=== PATIENT | female | born 1935 | race Caucasian/White ===

== ENCOUNTER 2018-11-06 21:18 | Inpatient (IN) | payer MEDICARE, OTHER ==
[~2018-11-06] VITALS: Ht 157.5 cm; Wt 53.0 kg
[2018-11-06 22:30] VITALS: BP 105/64
[2018-11-06 23:26] LABS: BASO % 0.1 % (0.0-1.0); EOS % 0.2 % (0.0-3.0); HEMATOCRIT 35.8 % (36.0-47.0); HEMOGLOBIN 11.7 g/dl (12.0-15.5); LYMPH # 0.6 10^3/uL (1.5-4.5); LYMPH % 7.1 % (24.0-44.0); MEAN CORPUSCULAR HEMOGLOBIN 29.5 pg (27.0-33.0); MEAN CORPUSCULAR HGB CONC 32.7 g/dl (32.0-36.5); MEAN CORPUSCULAR VOLUME 90.4 fl (80.0-96.0); MONO # 0.6 10^3/uL (0.0-0.8); MONO % 7.8 % (0.0-5.0); NEUTROPHILS # 6.8 10^3/uL (1.8-7.7); NEUTROPHILS % 84.6 % (36.0-66.0); PLATELET COUNT, AUTOMATED 143 10^3/uL (150-450); RED BLOOD COUNT 3.96 10^6/uL (4.00-5.40); WHITE BLOOD COUNT 8.1 10^3/uL (4.0-10.0)
[2018-11-06] MEDS ORDERED: MOM 30ML SUSPENSION UDC PO PRN (23:30)
[2018-11-06] MEDS ORDERED: ATOR1TAB21 PO (23:37)
[2018-11-06] MEDS ORDERED: ASPI81TA85 PO (23:37)
[2018-11-06] MEDS ORDERED: SYNT50TA PO (23:37)
[2018-11-06] MEDS ORDERED: LOSA50TA88 PO (23:38)
--- NOTE | 2018-11-06 23:49 | HPEPDOC ---
General Date of Admission Nov 06, 2018 at 22:20 Date of Service: Nov 06, 2018 Attending Physician: RAFAL STUBBS DO Chief Complaint The patient is a 83-year-old female admitted with a reason for visit of Renal Caluculi. Source: Patient, RN/MD History of Present Illness Patient is an 83-year-old female, presenting to [facility], on account of abdominal pain. Patient has a past medical history significant for hypothyroidism, hypertension, hyperlipidemia, symptomatic bradycardia status post pacemaker placement. She described the abdominal pain as a soreness. Onset 3-4 days ago, for which she was using heating pads. Initially pain was intermittent, but got progressively worse and consistent. She described the pain as dull and annoying reading at an 8 out of 10. Was unable to eat, was constipated, and was unable to move her bowels for about 2 days. At [facility], laboratory data was significant for BUN/creatinine of 19 and creatinine of 1.3 with a GFR of 39. CT abdomen and pelvis was completed which showed a 1.5 cm lesion in right hepatic lobe. There was also a 0.9 cm stone in the left UPJ with moderate left-sided hydroureteronephrosis and also moderate right-sided hydroureteronephrosis secondary to 1 cm stone at junction of the medial and distal thirds of the right ureter. The call was placed to urology, who recommended transferring patient to this facility for further evaluation and intervention. On assessment of patient she d enied any pain. She states she was much better, but complained of persisting constipation. Patient denied any chills, weakness, nausea, vomiting, fever Home Medications Scheduled Aspirin (Aspir 81) 81 Mg Tablet.dr, 81 MG PO DAILY, (Reported) Atorvastatin Calcium (Atorvastatin Calcium) 20 Mg Tablet, 20 MG PO QPM, (Reported) TAKES AROUND DINNERTIME Levothyroxine Sodium (Synthroid) 50 Mcg Tablet, 50 MCG PO DAILY, (Reported) Losartan Potassium (Losartan Potassium) 50 Mg Tablet, 50 MG PO DAILY, (Reported) Allergies Coded Allergies: No Known Allergies (Unverified , 11/06/18) Past Medical History Medical History Hypertension Hyperlipidemia Hypothyroidism Diverticulosis. Surgical History Uterine ablation. Pacemaker placement. Family History Hypothyroidism in first degree family members Social History * Smoker: Denies Alcohol: occationally Drugs: denies A-FIB/CHADSVASC A-FIB History Current/History of A-Fib/PAF?: No Current PO Anticoag Therapy: No Age/Risk Factor Scoring CHADSVASC: CHADSVASC Response (Comments) Value Age Risk Factor Age >/= 75 years old 2 Total 2 Review of Systems Other systems A 10 point pertinent review of systems was completed, negative except as stated in the history of presenting illness. Physical Examination Other physical findings GENERAL: NAD SKIN : Warm, brown martinez to bilateral suprapubic area. Patient states from heating pad HEENT: Atraumatic, normocephalic, PERRL, moist mucous membrane CARDIOVASCULAR: Regular rate and rhythm, S1S2, no JVD, no edema, distal pulses + and palpable RESP: CTAB, no accessory muscle use noted ABDOMEN: BS+ non distended, non tender MS: no joint deformities NEURO: Alert and oriented x 3, CN2-12 grossly intact PSYCH: no anxiety or agitation, appropriate mood and affect. Vital Signs see EMR Laboratory Data Labs 24H Laboratory Tests 2 11/06/18 23:12: Immature Granulocyte % (Auto) 0.2, White Blood Count 8.1, Red Blood Count 3.96L, Hemoglobin 11.7L, Hematocrit 35.8L, Mean Corpuscular Volume 90.4, Mean Corpuscular Hemoglobin 29.5, Mean Corpuscular Hemoglobin Concent 32.7, Red Cell Distribution Width 13.5, Platelet Count 143L, Neutrophils (%) (Auto) 84.6H, Lymphocytes (%) (Auto) 7.1L, Monocytes (%) (Auto) 7.8H, Eosinophils (%) (Auto) 0.2, Basophils (%) (Auto) 0.1, Neutrophils # (Auto) 6.8, Lymphocytes # (Auto) 0.6L, Monocytes # (Auto) 0.6, Eosinophils # (Auto) 0.0, Basophils # (Auto) 0.0, Nucleated Red Blood Cells % (auto) 0.0 CBC/BMP Laboratory Tests 11/06/18 23:12 Red Blood Count 3.96 L, Mean Corpuscular Volume 90.4, Mean Corpuscular Hemoglobin 29.5, Mean Corpuscular Hemoglobin Concent 32.7, Red Cell Distribution Width 13.5, Neutrophils (%) (Auto) 84.6 H, Lymphocytes (%) (Auto) 7.1 L, Monocytes (%) (Auto) 7.8 H, Eosinophils (%) (Auto) 0.2, Basophils (%) (Auto) 0.1, Neutrophils # (Auto) 6.8, Lymphocytes # (Auto) 0.6 L, Monocytes # (Auto) 0.6, Eosinophils # (Auto) 0.0, Basophils # (Auto) 0.0 Assessment/Plan Bilateral hydroureteronephrosis -Secondary to obstructive uropathy with renal stones -Call has been placed to urology, who plan to see patient and a consultation has also been placed -IV fluids with normal saline at 80 mL per hour now -Follow recommendations by urology Hypertension -Stable, controlled, continue losartan -Blood pressure monitoring per unit protocol Renal insufficiency -Although GFR is 39, creatinine is only mildly increased at 1.5 -Uncertain if this is an acute or chronic condition -Continuous IV fluids -Monitoring of renal function with fluid hydration for response to therapy -Avoid nephrotoxic medications -Treatment of underlying obstructive uropathy Hypothyroidism -Continue Synthroid Hyperlipidemia -Atorvastatin 20 mg 2 at bedtime Constipation -Bowel regimen with Colace 100 mg twice a day -MiraLAX daily DVT prophylaxis -Antiembolic stockings with sequential compression devices in light of possible urologic surgical intervention Plan / VTE VTE Prophylaxis Ordered?: Yes MAY MENDEZ [facility] Nov 06, 2018 23:49
[2018-11-06 23:56] LABS: ALBUMIN 3.3 GM/DL (3.2-5.2); BILIRUBIN,TOTAL 0.5 MG/DL (0.2-1.0); CALCIUM LEVEL 8.6 MG/DL (8.8-10.2); CREATININE FOR GFR 1.02 MG/DL (0.55-1.30); GLOMERULAR FILTRATION RATE 55.2 (>32); POTASSIUM SERUM 3.9 MEQ/L (3.5-5.1); TOTAL PROTEIN 6.4 GM/DL (6.4-8.2)
[2018-11-07] VITALS (7 sets, daily range): BP systolic 82–110; BP diastolic 51–64
[2018-11-07] MEDS: NS 1,000 ML IV SCH ×2 (00:01→12:00)
[2018-11-07] MEDS ORDERED: SENNA 8.6 MG TAB (SENOKOT) PO SCH (00:15)
[2018-11-07] MEDS ORDERED: LEVOTHYROXINE 50MCG TABLET (0.05MG) PO SCH (06:00)
[2018-11-07] MEDS: ACETAMINOPHEN TAB 650MG DOSE (2X325MG) PO PRN ×2 (06:13→14:59)
[2018-11-07 06:30] LABS: HEMOGLOBIN 11.6 g/dl (12.0-15.5); MEAN CORPUSCULAR HEMOGLOBIN 29.4 pg (27.0-33.0); MEAN CORPUSCULAR HGB CONC 32.2 g/dl (32.0-36.5); MEAN CORPUSCULAR VOLUME 91.1 fl (80.0-96.0); PLATELET COUNT, AUTOMATED 147 10^3/uL (150-450); RED BLOOD COUNT 3.95 10^6/uL (4.00-5.40); WHITE BLOOD COUNT 7.6 10^3/uL (4.0-10.0)
[2018-11-07 06:49] LABS: ALBUMIN 3.1 GM/DL (3.2-5.2); ALT/SGPT 20 U/L (12-78); BILIRUBIN,TOTAL 0.5 MG/DL (0.2-1.0); BLOOD UREA NITROGEN 13 MG/DL (7-18); CALCIUM LEVEL 8.4 MG/DL (8.8-10.2); CARBON DIOXIDE LEVEL 25 MEQ/L (21-32); CHLORIDE LEVEL 110 MEQ/L (98-107); GLOMERULAR FILTRATION RATE > 60.0 (>32); GLUCOSE, FASTING 96 MG/DL (70-100); SODIUM LEVEL 141 MEQ/L (136-145); TOTAL PROTEIN 6.3 GM/DL (6.4-8.2)
[2018-11-07] MEDS ORDERED: KETOROLAC TROMETHAMINE 10 MG TAB PO PRN (08:00)
[2018-11-07] MEDS ORDERED: ONDANSETRON 4MG/2ML VIAL (J2405) IV PRN ×2 (08:00→13:30)
[2018-11-07] MEDS: DOCUSATE SODIUM 100 MG CAP PO SCH ×2 (09:00)
[2018-11-07] MEDS ORDERED: ASPIRIN 81 MG CHEW TABLET PO SCH (09:00)
[2018-11-07] MEDS ORDERED: CYANOCOBALAMIN 500 MCG TAB PO SCH (09:00)
[2018-11-07] MEDS ORDERED: TAMSULOSIN 0.4 MG CAP PO SCH (09:00)
[2018-11-07] MEDS ORDERED: MULTIVITAMINS/MINERALS THERAP 1 TAB PO SCH (09:00)
[2018-11-07] MEDS ORDERED: MIRALAX *UNIT DOSE* 17GM PACKET PO SCH (09:00)
[2018-11-07] MEDS ORDERED: LOSARTAN 50 MG TAB PO SCH (09:00)
--- NOTE | 2018-11-07 10:19 | IPNPDOC ---
Text Note Date of Service The patient was seen on 11/07/18. NOTE Subjective: Patient is an 83-year-old female with a PMHx of HTN, DLP, Hypothyroidism, Diverticulosis who presented to [facility] as a transfer from [facility] for bilateral kidney stones associated with hydroureteronephrosis. Patient was admitted to hospital service for further evaluation and treatment, and urology was called on consultation Patient was seen and examined at the bedside. Patient reports that this morning she was expressing some left lower abdominal pain. She denies any Mansoor with urination. She did report some nausea without vomiting. Denies chest pain, shortness of breath, palpitations. Objective: Vitals (See below) General: Lying in bed, no acute distress, comfortable, AAOx3 HEENT: NC, AT CVS: RRR, +S1S2 Lungs: Fair air entry b/l, -w/r/r Abdomen: Soft, ND, NT Extremities: - Edema, - Calf tenderness Assessment and plan: Lower abdominal pain / flank pain - likely 22/ bilateral hydroureteronephrosis, in the setting of nephrolithiasis - Clinically patient reports that she is rinsing some abdominal discomfort - Physical without any significant findings - No leukocytosis or renal dysfunction - c/w IV fluids and Tamsulosin - c/w pain control with Tylenol and Toradol - Case has been discussed with urology; will keep patient nothing by mouth for potential intervention today Hypertension - BP well controlled - c/w Losartan Hypothyroidism - c/w Levothyroxine Hyperlipidemia - c/w Atorvastatin Constipation - c/w bowel regimen as ordered DVT prophylaxis - c/w EMILIANA / Sequentials VS,Fishbone, I+O VS, Fishbone, I+O Laboratory Tests 11/06/18 23:12 Red Blood Count 3.96 L, Mean Corpuscular Volume 90.4, Mean Corpuscular Hemo globin 29.5, Mean Corpuscular Hemoglobin Concent 32.7, Red Cell Distribution Width 13.5, Neutrophils (%) (Auto) 84.6 H, Lymphocytes (%) (Auto) 7.1 L, Monocytes (%) (Auto) 7.8 H, Eosinophils (%) (Auto) 0.2, Basophils (%) (Auto) 0.1, Neutrophils # (Auto) 6.8, Lymphocytes # (Auto) 0.6 L, Monocytes # (Auto) 0.6, Eosinophils # (Auto) 0.0, Basophils # (Auto) 0.0, Calcium Level 8.6 L, Aspartate Amino Transf (AST/SGOT) 20, Alanine Aminotransferase (ALT/SGPT) 22, Alkaline Phosphatase 82, Total Bilirubin 0.5, Total Protein 6.4, Albumin 3.3 11/07/18 06:07 Red Blood Count 3.95 L, Mean Corpuscular Volume 91.1, Mean Corpuscular Hemoglobin 29.4, Mean Corpuscular Hemoglobin Concent 32.2, Red Cell Distribution Width 13.3, Calcium Level 8.4 L, Aspartate Amino Transf (AST/SGOT) 15, Alanine Aminotransferase (ALT/SGPT) 20, Alkaline Phosphatase 83, Total Bilirubin 0.5, Total Protein 6.3 L, Albumin 3.1 L Vital Signs Date Time Temp Pulse Resp B/P (MAP) Pulse Ox O2 Delivery O2 Flow Rate FiO2 11/07/18 06:00 100.4 77 18 108/64 (90) 96 I&O- Last 24 Hours up to 6 AM 11/07/18 06:00 Intake Total 220 ml Output Total 750 ml Balance -530 ml KELVIN WASHINGTON MD Nov 07, 2018 10:19
--- NOTE | 2018-11-07 10:52 | SMCUROLCON ---
Urology Consultation General Date of Consultation 11/07/18 Reason For Consultation This patient is seen for Biateral Renal Caluculi. History of Present Illness Patient is an 83-year-old female, presenting to [facility], on account of abdominal pain. Patient has a past medical history significant for hypoth yroidism, hypertension, hyperlipidemia, symptomatic bradycardia status post pacemaker placement. She described the abdominal pain as a soreness. Onset 3-4 days ago, for which she was using heating pads. Initially pain was intermittent, but got progressively worse and consistent. She described the pain as dull and annoying reading at an 8 out of 10. Was unable to eat, was constipated, and was unable to move her bowels for about 2 days. At [facility], laboratory data was significant for BUN/creatinine of 19 and creatinine of 1.3 with a GFR of 39. CT abdomen and pelvis was completed which sh owed a 1.5 cm lesion in right hepatic lobe. There was also a 0.9 cm stone in the left UPJ with moderate left-sided hydroureteronephrosis and also moderate right- sided hydroureteronephrosis secondary to 1 cm stone at junction of the medial and distal thirds of the right ureter. 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 Past Medical History Medical History Medical History Hypertension Hyperlipidemia Hypothyroidism Diverticulosis. Surgical Hstory Surgical History Uterine ablation. Pacemaker placement. Social History * Smoker: former Smoker Drugs: denies Medications Current Medications Current Medications Acetaminophen (Tylenol Tab) 650 mg Q4H PRN PO PAIN OR FEVER Last administered on 11/07/18at 06:13; Start 11/06/18 at 23:30 Aspirin (Aspirin Chewable) 81 mg DAILY PO ; Start 11/07/18 at 09:00 Atorvastatin Calcium (Lipitor) 20 mg DAILY@1800 PO ; Start 11/07/18 at 18:00 Cyanocobalamin (Vitamin B12) 500 mcg QAM PO ; Start 11/07/18 at 09:00 Docusate Sodium (Colace) 100 mg BID PO Last administered on 11/07/18at 00:00; Start 11/06/18 at 21:00 Home Med (Med Rec Complete!) ASDIRECTED XX ; Start 11/06/18 at 23:45; Stop 11/06/18 at 23:45; Status DC Ketorolac Tromethamine (ToRADol) 10 mg Q6HP PRN PO PAIN; Start 11/07/18 at 08:00; Stop 11/12/18 at 07:59 Levothyroxine Sodium (Synthroid) 50 mcg DAILY@06 PO Last administered on 11/07/18at 06:13; Start 11/07/18 at 06:00 Losartan Potassium (Cozaar) 50 mg DAILY PO ; Start 11/07/18 at 09:00 Magnesium Hydroxide (Milk Of Magnesia) 30 ml DAILY PRN PO CONSTIPATION; Start 11/06/18 at 23:30; Stop 11/07/18 at 00:11; Status DC Multivitamins (Theragram-M) 1 tab DAILY PO ; Start 11/07/18 at 09:00 Ondansetron HCl (ZOFRAN INJection) 4 mg Q6HP PRN IV NAUSEA OR VOMITING; Start 11/07/18 at 08:00 Polyethylene Glycol (Miralax) 1 pkt DAILY PO ; Start 11/07/18 at 09:00 Senna (Senokot) 1 tab DAILY PO Last administered on 11/07/18at 00:34; Start 11/07/18 at 00:15 Sodium Chloride 1,000 ml @ 80 mls/hr [id number] IV Last administered on 11/07/18at 00:01; Start 11/06/18 at 23:30 Tamsulosin HCl (Flomax) 0.4 mg DAILY PO ; Start 11/07/18 at 09:00 Allergies Allergies: Coded Allergies: No Known Allergies (Unverified , 11/06/18) Review of Systems General: Denies: ROS Unobtainable, Chills, Night Sweats, Fatigue, Malaise, Normal Appetite, Other Symptoms Constitutional: Denies: Fever, Chills, Sweats, Weakness, Malaise, Other Eyes: Denies: Pain, Vision change, Conjunctivae inflammation, Eyelid inflammation, Redness, Other ENT: Denies: Head Aches, Ear Pain, Dysphagia, Sinus Congestion, Post Nasal Drip, Sore Throat, Epistaxis, Other Symptoms Skin: Denies: Rash, Lesions, Jaundice, Bruising, Itching, Dry, Breakdown, Nail Changes, Other Pulmonary: Denies: Dyspnea, Cough, Pleuritic Chest Pain, Other Symptoms Cardiovascular: Denies Chest Pain, Denies Palpitations, Denies Orthopnea, Denies Paroxysmal Noc. Dyspnea, Denies Edema, Denies Lt Headedness, Denies Other Symptoms Gastrointestinal: Reports: Abdominal Pain; Denies: Nausea, Vomiting, Diarrhea, Constipation, Melena, Hematochezia, Other Symptoms Genitourinary: Reports: Hematuria; Denies: Dysuria, Frequency, Incontinence, Retention, Other Symptoms Hematologic: Denies: Bruising, Bleeding Excessively, Petecchia, Purpura, Enlarged Lymph Nodes, Other Hematologic Endocrine: Denies: Polydipsia, Polyphagia, Polyuria, Heat Intolerance, Cold Intolerance, Other Endocrine Sx Musculoskeletal: Denies: Neck Pain, Back Pain, Shoulder Pain, Arm Pain, Hand Pain, Leg Pain, Foot Pain, Joint Pain, Muscle Pain, Spasms, Other Symptoms Neurological: Denies: Weakness, Numbness, Incoordination, Change in Speech, Confusion, Seizures, Other Symptoms Psych: Reports: Mood Normal; Denies: Anxiety, Depression, Memory Issues, Thoughts of Self Harm, Anger, Thoughts of harming Other, Other Psych Physical Examination General Exam: Alert EYE EXAM: PERRLA ENT EXAM: Tongue Midline Neck Exam: Supple Abdomen Exam: Normal Bowel Sounds, Soft Extremity Exam: Normal Pulses; No: Clubbing, Cyanosis, Edema, Tenderness, Swelling, Other Skin Exam: Nl turgor and temperature Psych Exam: Mental status NL, Mood NL, Oriented x 3 Vital Signs/I&O Vital Signs Date Time Temp Pulse Resp B/P (MAP) Pulse Ox O2 Delivery O2 Flow Rate FiO2 11/07/18 06:00 100.4 77 18 108/64 (79) 96 I&O- Last 24 Hours up to 6 AM 11/07/18 05:59 Intake Total 100 ml Output Total 350 ml Balance -250 ml Laboratory Data 24H Labs Laboratory Tests 2 11/06/18 23:12: Immature Granulocyte % (Auto) 0.2, White Blood Count 8.1, Red Blood Count 3.96L, Hemoglobin 11.7L, Hematocrit 35.8L, Mean Corpuscular Volume 90.4, Mean Corpuscular Hemoglobin 29.5, Mean Corpuscular Hemoglobin Concent 32.7, Red Cell Distribution Width 13.5, Platelet Count 143L, Neutrophils (%) (Auto) 84.6H, Lymphocytes (%) (Auto) 7.1L, Monocytes (%) (Auto) 7.8H, Eosinophils (%) (Auto) 0.2, Basophils (%) (Auto) 0.1, Neutrophils # (Auto) 6.8, Lymphocytes # (Auto) 0.6L, Monocytes # (Auto) 0.6, Eosinophils # (Auto) 0.0, Basophils # (Auto) 0.0, Nucleated Red Blood Cells % (auto) 0.0, Anion Gap 6L, Glomerular Filtration Rate 55.2, Blood Urea Nitrogen 16, Creatinine 1.02, Sodium Level 139, Potassium Level 3.9, Chloride Level 108H, Carbon Dioxide Level 25, Calcium Level 8.6L, Aspartate Amino Transf (AST/SGOT) 20, Alanine Aminotransferase (ALT/SGPT) 22, Alkaline Phosphatase 82, Total Bilirubin 0.5, Total Protein 6.4, Albumin 3.3, Albumin/Globulin Ratio 1.06 11/07/18 06:07: Nucleated Red Blood Cells % (auto) 0.0, Anion Gap 6L, Glomerular Filtration Rate > 60.0, Blood Urea Nitrogen 13, Creatinine 0.90, Sodium Level 141, Potassium Level 4.0, Chloride Level 110H, Carbon Dioxide Level 25, Calcium Level 8.4L, Aspartate Amino Transf (AST/SGOT) 15, Alanine Aminotransferase (ALT/SGPT) 20, Alkaline Phosphatase 83, Total Bilirubin 0.5, Total Protein 6.3L, Albumin 3.1L, Albumin/Globulin Ratio 0.97L CBC/BMP Laboratory Tests 11/06/18 23:12 Red Blood Count 3.96 L, Mean Corpuscular Volume 90.4, Mean Corpuscular Hemoglobin 29.5, Mean Corpuscular Hemoglobin Concent 32.7, Red Cell Distribution Width 13.5, Neutrophils (%) (Auto) 84.6 H, Lymphocytes (%) (Auto) 7.1 L, Monocytes (%) (Auto) 7.8 H, Eosinophils (%) (Auto) 0.2, Basophils (%) (Auto) 0.1, Neutrophils # (Auto) 6.8, Lymphocytes # (Auto) 0.6 L, Monocytes # (Auto) 0.6, Eosinophils # (Auto) 0.0, Basophils # (Auto) 0.0, Calcium Level 8.6 L, Aspartate Amino Transf (AST/SGOT) 20, Alanine Aminotransferase (ALT/SGPT) 22, Alkaline Phosphatase 82, Total Bilirubin 0.5, Total Protein 6.4, Albumin 3.3 11/07/18 06:07 Red Blood Count 3.95 L, Mean Corpuscular Volume 91.1, Mean Corpuscular Hemoglobin 29.4, Mean Corpuscular Hemoglobin Concent 32.2, Red Cell Distribution Width 13.3, Calcium Level 8.4 L, Aspartate Amino Transf (AST/SGOT) 15, Alanine Aminotransferase (ALT/SGPT) 20, Alkaline Phosphatase 83, Total Bilirubin 0.5, Total Protein 6.3 L, Albumin 3.1 L Assessment Mrs. Spivey with bilateral partially obstructing ureteral stones that are too large to pass without assistance. She is currently afebrile and comfortable. Secondary to her age and that both systems are obstructed relief of the obstructions are required. Plan I discussed the risks and benefits of the treatment options. 1) Do nothing at this time and schedule future intervention. Risks of complete bilateral obstruction, or recurrent pain, or infection 2) Place bilateral ureteral stents today. Risks unable to place both stents 3) Bilateral Ureteroscopy with laser lithrotripsy today. She is on aspirin increase of bleeding. Plan is bilateral ureteral stent placement. Time Spent on Consult: Time Spent / Consult (Minutes): 40 GISELA MERCEDES MD Nov 07, 2018 10:31
[2018-11-07] MEDS ORDERED: PROPOFOL 200 MG/20 ML VIAL As Ordered ONE (11:11)
[2018-11-07] MEDS ORDERED: LIDOCAINE 2% INJ 100 MG/5 ML SDV (FOR ANES.) As Ordered ONE (11:12)
[2018-11-07] MEDS ORDERED: dexameTHASONE 4 MG/ML 1ML VIAL (J1100) As Ordered ONE (11:13)
[2018-11-07] MEDS ORDERED: ONDANSETRON 4MG/2ML VIAL (J2405) As Ordered ONE (11:13)
[2018-11-07] MEDS ORDERED: MIDAZOLAM INJ 2 MG/2 ML VIAL (J2250) As Ordered ONE (11:14)
[2018-11-07] MEDS ORDERED: fentaNYL 100 MCG/2 ML INJECTION (J3010) As Ordered ONE (11:14)
[2018-11-07] MEDS ORDERED: CONRAY-60 60% 50ML VIAL (Q9961) As Ordered ONE (11:52)
[2018-11-07] MEDS ORDERED: LIDOCAINE 2% 5ML JELLY UROJET As Ordered ONE (11:52)
[2018-11-07] MEDS ORDERED: CIPROFLOXACIN/D5W 400 MG/200 ML BAG (J0744) As Ordered ONE (12:11)
[2018-11-07] MEDS ORDERED: HYDROMORPHONE HCL 0.5 MG/ 0.5 ML SYRINGE (J1170 PER 1) IV PRN (13:30)
[2018-11-07] MEDS ORDERED: PERCOCET 5MG/325MG TAB PO PRN (13:30)
[2018-11-07] MEDS ORDERED: LR 1,000 ML IV SCH (13:30)
[2018-11-07] MEDS ORDERED: fentaNYL 100 MCG/2 ML INJECTION (J3010) IV PRN (13:30)
--- NOTE | 2018-11-07 13:35 | ROOPDOC ---
[facility] Report Of Operation Report of Operation DATE OF PROCEDURE: 11/07/18 PREPROCEDURE DIAGNOSES: Bilateral ureteral obstructing calculus. POSTPROCEDURE DIAGNOSES: Same. PROCEDURE: Cystoscopy, bilateral retrograde pyelograms, bilateral ureteral 7FR stent placement. 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 anesthesia with LMA. ESTIMATED BLOOD LOSS: Approximately minimal mL. COMPLICATIONS: None. REMARKS: PROCEDURE NOTE: Patient 83-year-old female who was admitted last night transfer from another hospital with bilateral ureteral calculus associated with abdominal pain and discomfort. Never had a history of kidney stones and she is relatively for her age, healthy. Risks, benefits and complications of the treatment options were discussed. Patient elected to receive a cystoscopy, bilateral retrograde pyelograms, bilateral ureteral stent placement. DESCRIPTION OF PROCEDURE: Consents were signed prior to his procedure. Patient was identified itself brought in the operating room cystoscopy suite. A quick timeout was performed. She was given general anesthesia with LMA. She was prepped and draped in a standard fashion, placed in lithotomy position. A second timeout was performed. A 22 Indonesian cystoscope was placed in the urethra. Bladder was inspected and no pathology was noted. All quadrants were without masses or areas of bleeding. The left ureteral orifice was identified and was cannulated with a Pollack catheter with the assistance of a 0.38 wire. The wire was removed and a retrograde pyelogram was performed. The 0.38 wire was then passed through the Pollack catheter up into the renal pelvis. A 7Fr. ureteral stent was placed over the wire into the renal pelvis. Fluoroscopic guidance was used. The urete ral stent was coiled in the renal pelvis. The wire was removed and distal part of stent was noted to be coiled in the bladder. The stent was draining copious amount of urine. We then turned to the right side and repeated to process. The right ureteral orifice was identified and was cannulated with a Pollack catheter with the assistance of a 0.38 wire. The wire was removed and a retrograde pyelogram was performed. The 0.38 wire was then passed through the Pollack catheter up into the renal pelvis. A 7Fr. ureteral stent was placed over the wire into the renal pelvis. Fluoroscopic guidance was used. The ureteral stent was coiled in the renal pelvis. The wire was removed and distal part of stent was noted to be coiled in the bladder. The stent was draining copious amount of urine. The bladder was reinspected again procedure. The bladder was drained and was noted to be draining clear urine. Cystoscope was removed. Patient was washed off and awakened from anesthesia. Taken to recovery room and then returned to the floor. She is expected to be discharged home later if there are no complications. GISELA SOSA MD Nov 07, 2018 13:35
--- NOTE | 2018-11-07 14:15 | REP ---
Clinical: Bilateral send placement. Technique: Intraoperative fluoroscopic imaging using portable C-arm technique. Findings: Multiple images demonstrate bilateral hydroureteronephrosis (right greater than left) with satisfactory bilateral ureteral stent placement. Total fluoroscopic time 1 minute 25 seconds. Impression: Status post bilateral ureteral stent placement. Electronically Signed by Wily Godinez MD 11/07/2018 02:07 P
[2018-11-07] MEDS ORDERED: ATORVASTATIN 20 MG TAB PO SCH (18:00)
[2018-11-07] MEDS ORDERED: KETO10TAB PO (18:13)
[2018-11-07] MEDS ORDERED: FLOM0.4C39 PO (18:13)
--- NOTE | 2018-11-07 18:18 | DS.PDOC ---
Discharge Summary General Date of Admission Nov 06, 2018 at 22:20 Date of Discharge 11/07/2018 Discharge Summary PROCEDURES PERFORMED DURING STAY: Cystoscopy, bilateral retrograde pyelograms, bilateral ureteral 7FR stent placement with Dr. Laurel Sosa on 11/07/2018 ADMITTING DIAGNOSES / DISCHARGE DIAGNOSES: Lower abdominal pain / flank pain - likely 2/2 bilateral hydroureteronephrosis, in the setting of nephrolithiasis Hypertension Hypothyroidism Hyperlipidemia Constipation DVT prophylaxis COMPLICATIONS/CHIEF COMPLAINT: Flank / Abdominal pain HISTORY OF PRESENT ILLNESS: Patient is an 83-year-old female with a PMHx of HTN, DLP, Hypothyroidism, Diverticulosis who presented to [facility] as a transfer from [facility] for bilateral kidney stones associated with hydroureteronephrosis. Patient was admitted to hospital service for further evaluation and treatment, and urology was called on consultation HOSPITAL COURSE: Lower abdominal pain / flank pain - likely 2/2 bilateral hydroureteronephrosis, in the setting of nephrolithiasis - Physical without any significant findings - No leukocytosis or renal dysfunction - c/w IV fluids and Tamsulosin; will cotinue tamsulosin as an outpatient - c/w pain control with Tylenol and Toradol - Has had Cystoscopy, bilateral retrograde pyelograms, bilateral ureteral 7FR stent placement with Dr. Luarel Sosa on 11/07/2018 - Cleared by urology for discharge home and follow up within 2 weeks - Will have outpatient follow up with PMD within 7 days - Advised increased hydration and compliance with medications Hypertension - BP well controlled - c/w Losartan Hypothyroidism - c/w Levothyroxine Hyperlipidemia - c/w Atorvastatin Constipation - c/w bowel regimen as ordered DVT prophylaxis - c/w EMILIANA / Sequentials DISCHARGE MEDICATIONS: Please see below. ALLERGIES: Please see below. PHYSICAL EXAMINATION ON DISCHARGE: Vitals (See below) General: Lying in bed, no acute distress, comfortable, AAOx3 HEENT: NC, AT CVS: RRR, +S1S2 Lungs: Fair air entry b/l, -w/r/r Abdomen: Soft, ND, NT Extremities: - Edema, - Calf tenderness LABORATORY DATA: Please see below. ACTIVITY: [As tolerated]. DISCHARGE PLAN: Follow up with Zayra Hernandez and Urology within 7 days Remain compliant with treatment plan and medications Return to the ER if you experience any problems DISPOSITION: Home DISCHARGE CONDITION: [Stable]. TIME SPENT ON DISCHARGE: 35 minutes Vital Signs/I&Os Vital Signs Date Time Temp Pulse Resp B/P (MAP) Pulse Ox O2 Delivery O2 Flow Rate FiO2 11/07/18 16:30 98.0 76 17 85/55 (65) 98 11/07/18 13:10 2 I&O- Last 24 Hours up to 6 AM 11/07/18 06:00 Intake Total 220 ml Output Total 750 ml Balance -530 ml Laboratory Data Labs 24H Laboratory Tests 2 11/06/18 23:12: Immature Granulocyte % (Auto) 0.2, White Blood Count 8.1, Red Blood Count 3.96L, Hemoglobin 11.7L, Hematocrit 35.8L, Mean Corpuscular Volume 90.4, Mean Corpuscular Hemoglobin 29.5, Mean Corpuscular Hemoglobin Concent 32.7, Red Cell Distribution Width 13.5, Platelet Count 143L, Neutrophils (%) (Auto) 84.6H, Lymphocytes (%) (Auto) 7.1L, Monocytes (%) (Auto) 7.8H, Eosinophils (%) (Auto) 0.2, Basophils (%) (Auto) 0.1, Neutrophils # (Auto) 6.8, Lymphocytes # (Auto) 0.6L, Monocytes # (Auto) 0.6, Eosinophils # (Auto) 0.0, Basophils # (Auto) 0.0, Nucleated Red Blood Cells % (auto) 0.0, Anion Gap 6L, Glomerular Filtration Rate 55.2, Blood Urea Nitrogen 16, Creatinine 1.02, Sodium Level 139, Potassium Level 3.9, Chloride Level 108H, Carbon Dioxide Level 25, Calcium Level 8.6L, Aspartate Amino Transf (AST/SGOT) 20, Alanine Aminotransferase (ALT/SGPT) 22, Alkaline Phosphatase 82, Total Bilirubin 0.5, Total Protein 6.4, Albumin 3.3, Albumin/Globulin Ratio 1.06 11/07/18 06:07: Nucleated Red Blood Cells % (auto) 0.0, Anion Gap 6L, Glomerular Filtration Rate > 60.0, Blood Urea Nitrogen 13, Creatinine 0.90, Sodium Level 141, Potassium Level 4.0, Chloride Level 110H, Carbon Dioxide Level 25, Calcium Level 8.4L, Aspartate Amino Transf (AST/SGOT) 15, Alanine Aminotransferase (ALT/SGPT) 20, Alkaline Phosphatase 83, Total Bilirubin 0.5, Total Protein 6.3L, Albumin 3.1L, Albumin/Globulin Ratio 0.97L 11/07/18 10:33: Urine Color YELLOW, Urine Appearance CLEAR, Urine pH 5.0, Urine Specific [place] 1.018, Urine Protein NEGATIVE, Urine Glucose (UA) NEGATIVE, Urine Ketones 1+H, Urine Blood 2+H, Urine Nitrite NEGATIVE, Urine Bilirubin NEGATIVE, Urine Urobilinogen 0.2, Urine Leukocyte Esterase NEGATIVE, Urine WBC (Auto) 9H, Urine RBC (Auto) 15H, Urine Hyaline Casts (Auto) 0, Urine Bacteria (Auto) NEGATIVE, Urine Squamous Epithelial Cells 1, Urine Sperm (Auto) CBC/BMP Laboratory Tests 11/06/18 23:12 Red Blood Count 3.96 L, Mean Corpuscular Volume 90.4, Mean Corpuscular Hemoglobin 29.5, Mean Corpuscular Hemoglobin Concent 32.7, Red Cell Distribution Width 13.5, Neutrophils (%) (Auto) 84.6 H, Lymphocytes (%) (Auto) 7.1 L, Monocytes (%) (Auto) 7.8 H, Eosinophils (%) (Auto) 0.2, Basophils (%) (Auto) 0.1, Neutrophils # (Auto) 6.8, Lymphocytes # (Auto) 0.6 L, Monocytes # (Auto) 0.6, Eosinophils # (Auto) 0.0, Basophils # (Auto) 0.0, Calcium Level 8.6 L, Aspartate Amino Transf (AST/SGOT) 20, Alanine Aminotransferase (ALT/SGPT) 22, Alkaline Phosphatase 82, Total Bilirubin 0.5, Total Protein 6.4, Albumin 3.3 11/07/18 06:07 Red Blood Count 3.95 L, Mean Corpuscular Volume 91.1, Mean Corpuscular Hemoglobin 29.4, Mean Corpuscular Hemoglobin Concent 32.2, Red Cell Distribution Width 13.3, Calcium Level 8.4 L, Aspartate Amino Transf (AST/SGOT) 15, Alanine Aminotransferase (ALT/SGPT) 20, Alkaline Phosphatase 83, Total Bilirubin 0.5, Total Protein 6.3 L, Albumin 3.1 L Discharge Medications Scheduled Aspirin (Aspir 81) 81 Mg Tablet.dr, 81 MG PO DAILY, (Reported) Atorvastatin Calcium (Atorvastatin Calcium) 20 Mg Tablet, 20 MG PO QPM, (Reported) TAKES AROUND DINNERTIME Levothyroxine Sodium (Synthroid) 50 Mcg Tablet, 50 MCG PO DAILY, (Reported) Losartan Potassium (Losartan Potassium) 50 Mg Tablet, 50 MG PO DAILY, (Reported) Tamsulosin HCl (Flomax) 0.4 Mg Capsule, 0.4 MG PO DAILY Scheduled PRN Ketorolac Tromethamine (Ketorolac Tromethamine) 10 Mg Tablet, 10 MG PO Q6HP PRN for PAIN Allergies Coded Allergies: No Known Allergies (Unverified , 11/06/18) KELVIN WASHINGTON MD Nov 07, 2018 18:18
== END 2018-11-07 18:50 | disposition home or self-care (01) | DRG 661 ==
LOC: M MS5PR 22:20
PROVIDERS: ADMIT Family Medicine; ATTEND Family Medicine
PROC: 0TJB8ZZ Inspection of Bladder, Via Natural or Artificial Opening Endoscopic (ICD-10-PCS; 2018-11-07)
PROC: 0T788DZ Dilation of Bilateral Ureters with Intraluminal Device, Via Natural or Artificial Opening Endoscopic (ICD-10-PCS; principal; 2018-11-07 10:34)
DX: N13.2 Hydronephrosis with renal and ureteral calculous obstruction (principal); I10 Essential (primary) hypertension; E78.5 Hyperlipidemia, unspecified; Z95.0 Presence of cardiac pacemaker; E03.9 Hypothyroidism, unspecified; Z79.82 Long term (current) use of aspirin; Z79.899 Other long term (current) drug therapy; K59.00 Constipation, unspecified; N28.9 Disorder of kidney and ureter, unspecified; K57.90 Diverticulosis of intestine, part unspecified, without perforation or abscess without bleeding; Z87.891 Personal history of nicotine dependence

== ENCOUNTER 2018-12-23 05:31 | Day surgery (SDC) | payer MEDICARE, OTHER ==
[~2018-12-23] VITALS: Ht 154.9 cm; Wt 53.3 kg
[~2018-12-23 05:31] MED LIST: ASPI81TA85 PO; ATOR1TAB21 PO; DITR5TAB PO; FLOM0.4C39 PO; KETO10TAB PO; LOSA50TA88 PO; MULTCAP PO; SYNT50TA PO; VITAD1000T PO
[2018-12-23] MEDS ORDERED: CONRAY-60 60% 50ML VIAL (Q9961) As Ordered ONE (06:47)
[2018-12-23] MEDS ORDERED: LR 1,000 ML IV ONE (07:00)
[2018-12-23] MEDS ORDERED: PROPOFOL 200 MG/20 ML VIAL As Ordered ONE ×2 (07:15→07:16)
[2018-12-23] MEDS ORDERED: ONDANSETRON 4MG/2ML VIAL (J2405) As Ordered ONE (07:16)
[2018-12-23] MEDS ORDERED: LIDOCAINE 2% INJ 100 MG/5 ML SDV (FOR ANES.) As Ordered ONE (07:16)
[2018-12-23] MEDS ORDERED: dexameTHASONE 4 MG/ML 1ML VIAL (J1100) As Ordered ONE (07:16)
[2018-12-23] MEDS ORDERED: fentaNYL 100 MCG/2 ML INJECTION (J3010) As Ordered ONE (07:16)
[2018-12-23] MEDS ORDERED: fentaNYL 100 MCG/2 ML INJECTION (J3010) IV PRN (09:15)
[2018-12-23] MEDS ORDERED: oxyCODONE 5MG TAB PO PRN (09:15)
[2018-12-23] MEDS ORDERED: ONDANSETRON 4MG/2ML VIAL (J2405) IV PRN (09:15)
[2018-12-23] MEDS ORDERED: LR 1,000 ML IV SCH (09:15)
[2018-12-23] MEDS ORDERED: PERCOCET 5MG/325MG TAB PO PRN (09:15)
--- NOTE | 2018-12-23 09:24 | REP ---
RETROGRADE PYELOGRAM: 12/23/2018. Clinical history: Nephrolithiasis. Technique: Four images from C-arm fluoroscopy provided to Dr. Alas from the urology division for retrograde pyelogram and stent exchange. Comparison: 11/07/2018. Findings: Initial image shows a wire into the right renal collecting system with contrast demonstrating some hydronephrosis, moderate. An indwelling stent seen on the left. Second image shows a new stent in the right renal collecting system and a wire and contrast into the left collecting system. Less distension of the left collecting system. Third image shows a new stent coiled in the left renal pelvis. The fourth image shows bilateral stents coiled in the bladder. Fluoroscopy time: 19 seconds. Electronically Signed by Willy Meraz MD 12/23/2018 09:33 A
[2018-12-23 10:15] VITALS: BP 124/62
--- NOTE | 2018-12-24 18:20 | RO ---
DATE OF PROCEDURE: 12/23/2018 PREPROCEDURE DIAGNOSIS: Kidney stones. POSTPROCEDURE DIAGNOSIS: Kidney stones. PROCEDURE: Cystoscopy, bilateral ureteroscopy with laser lithotripsy and basket extraction of stones, bilateral retrograde pyelogram with intraoperative interpretation of images, bilateral ureteral stent exchange. SURGEON: Dr. Chadwick Alas [employer] CONSULTANT: None. ANESTHESIA: General. OPERATIVE INDICATIONS: This is an 83-year-old male who presented to the hospital approximately 4-6 weeks ago with an obstructing distal right ureteral stone, as well as an obstructing left ureteropelvic junction stone. She had bilateral ureteral stents placed at the time. She was brought to the operating room today for treatment of her stones. DESCRIPTION OF PROCEDURE: The patient was brought to the operating room and general anesthesia induced. Prophylactic antibiotics were infused. She was placed in the dorsal lithotomy position and prepped and draped in the usual sterile fashion. A rigid cystoscope was inserted into the urethral meatus and advanced to the bladder. Once inside the bladder, both ureteral stents were seen. The right ureteral stent was then grasped and withdrawn until the distal end was protruding from the urethral meatus. I advanced the wire of the right stent and then removed the stent completely, leaving the wire in place. I then went up the right collecting system with a short semi-rigid uteroscope and within the distal ureter, an approximately 8 mm stone was seen. The stone was fragmented into smaller pieces using a 272 micron laser fiber and then all the fragments were removed using a basket. Once satisfied all the fragments had been removed, I examined the more proximal ureter and no additional stones were seen. A retrograde pyelogram was performed, notable for mild right hydronephrosis, no extravasation. I then utilized the wire to advance a 6-Telugu x 22-32 cm JJ ureteral stent up into the right collecting system. The wire was removed, and there were adequate curls of the stent in the right renal pelvis and in the bladder. I then grasped the left ureteral stent and withdrew it until the distal end was protruding from the urethral meatus. I advanced a wire up the left collecting system. I then removed the stent, leaving the wire in place. I then advanced the ureteral access sheath over the wire into the left collecting system. I then went up the access sheath with a flexible ureteroscope, and it appeared that the left ureteropelvic junction stone had been pushed into a mid pole calyx. The stone was approximately 8 mm in size. The stone was then fragmented into smaller pieces using the laser and then all the fragments were removed using the basket. I examined the rest of the kidney and no additional stone fragments were seen. A retrograde pyelogram was performed, notable for mild left hydronephrosis, no extravasation. I then withdrew the ureteroscope along with the access sheath and no stones were seen within the ureter. I then utilized the wire to advance a 6-Telugu x 22-32 cm JJ ureteral stent up to the left collecting system. The wire was removed, and there were adequate curls of the stent in the left renal pelvis and in the bladder. The bladder was emptied of all fluids and this marked the conclusion of the procedure. The patient was taken out of the dorsal lithotomy position, awakened from anesthesia and transported to the recovery room in stable condition. Estimated blood loss: 5 mL. Complications: None. Specimens: Kidney stone fragments. PLAN: The patient will followup in the clinic in a week or two for stent removal.
[2018-12-29 14:29] LABS: CA Oxalate Dihy 55 % (.); COMMENT Note: (.); Ca Ox Monohydrate 25 % (.)
== END 2018-12-23 10:35 | disposition home or self-care (01) ==
LOC: M SDC 05:31
PROVIDERS: ATTEND Urology
DX: N20.0 Calculus of kidney (principal); I10 Essential (primary) hypertension; E78.49 Other hyperlipidemia; E03.9 Hypothyroidism, unspecified; K21.9 Gastro-esophageal reflux disease without esophagitis; Z95.0 Presence of cardiac pacemaker; Z88.8 Allergy status to other drugs, medicaments and biological substances; Z79.82 Long term (current) use of aspirin; Z79.899 Other long term (current) drug therapy
CPT/HCPCS: 52356; 74420; 82360; 88300; C1769; C1894; C2617; J0690; J1100; J2405; J3010; Q9961

== ENCOUNTER → 2025-02-10 | Outpatient (CLI) | payer MEDICARE, OTHER ==
[~2025-02-10] MED LIST changes: -ASPI81TA85 PO; +ASPI81TA86 PO; +CHOL100029 PO; -FLOM0.4C39 PO; +GNP250TA9 PO; +LOSA50TA28 PO; -LOSA50TA88 PO; +TAMS-18 PO; -VITAD1000T PO
== END ==
LOC: M RAD 14:37
PROVIDERS: ATTEND Internal Medicine Cardiovascular Disease
DX: Z01.810 Encounter for preprocedural cardiovascular examination (principal); R09.89 Other specified symptoms and signs involving the circulatory and respiratory systems; I65.23 Occlusion and stenosis of bilateral carotid arteries

== ENCOUNTER → 2025-04-13 | Outpatient (CLI) | payer MEDICARE, OTHER | LOC: M PLAIMG 10:12 | PROVIDERS: ATTEND Internal Medicine Cardiovascular Disease | DX: R94.31 Abnormal electrocardiogram [ECG] [EKG] (principal); Z95.0 Presence of cardiac pacemaker; I08.0 Rheumatic disorders of both mitral and aortic valves ==